=== PATIENT | female | born 1970 | race Caucasian/White ===

== ENCOUNTER 2023-05-19 11:34 | Emergency (ER) | payer OTHER | END 2023-05-19 13:15 | disposition home or self-care (01) | LOC: NAV ERS 11:34 | DX: S60.212A Contusion of left wrist, initial encounter (principal); S20.20XA Contusion of thorax, unspecified, initial encounter; S80.01XA Contusion of right knee, initial encounter; W01.0XXA Fall on same level from slipping, tripping and stumbling without subsequent striking against object, initial encounter ==